=== PATIENT | male | born 1945 | race African-American/Black ===

== ENCOUNTER 2018-07-22 20:54 | Outpatient (CLI) ==
[2015-03-01 04:36] VITALS: BMI 30.4
== END 2018-07-22 21:13 | disposition short-term general hospital (02) ==
LOC: AMBL 20:54
PROVIDERS: ATTEND Internal Medicine Geriatric Medicine
DX: R06.02 Shortness of breath (principal); R50.9 Fever, unspecified; R09.89 Other specified symptoms and signs involving the circulatory and respiratory systems; F03.90 Unspecified dementia, unspecified severity, without behavioral disturbance, psychotic disturbance, mood disturbance, and anxiety; R40.2411 Glasgow coma scale score 13-15, in the field [EMT or ambulance]

== ENCOUNTER 2019-02-25 13:23 | Outpatient (CLI) | payer OTHER ==
[2015-03-01 04:36] VITALS: BMI 30.4
== END 2019-02-25 13:44 | disposition short-term general hospital (02) ==
LOC: AMBL 13:23
PROVIDERS: ATTEND Internal Medicine Geriatric Medicine
DX: R60.0 Localized edema (principal); Z89.612 Acquired absence of left leg above knee

== ENCOUNTER 2019-03-25 09:22 | Outpatient (CLI) | payer OTHER ==
[2015-03-01 04:36] VITALS: BMI 30.4
== END 2019-03-25 09:23 | disposition home or self-care (01) ==
LOC: NONPT 09:22
PROVIDERS: ATTEND General Practice
DX: E78.5 Hyperlipidemia, unspecified (principal); Z79.899 Other long term (current) drug therapy
CPT/HCPCS: 80053; 80061; 84439; 84443; 84550; 85025